=== PATIENT | male | born 1950 ===

== ENCOUNTER 2020-11-02 21:57 | Emergency (ER) | payer SELFPAY ==
--- NOTE | 2020-11-02 22:09 | NUR ---
Patient was outside with RA 100 in the rig and patient did not want to be seen by ERMD . Patient given information related to possible complications, up to and including , which could occur as a result of leaving the hospital at this time. Patient verbalizes understanding of risks involved due to leaving against medical advice. Patient has signed AMA form.
== END 2020-11-02 22:15 | disposition left against medical advice (07) ==
LOC: ER 21:59
DX: Z75.3 Unavailability and inaccessibility of health-care facilities (principal)